=== PATIENT | female | born 1960 | race African-American/Black ===

== ENCOUNTER 2025-08-27 14:33 | Emergency (ER) | payer MEDICAID ==
[~2025-08-27] VITALS: Ht 160 cm; Wt 82.0 kg
[2025-08-27 14:38] VITALS: BP 152/75; PULSE 70; RESP 18; TEMP 97.9; O2SAT 100
[2025-08-27] MEDS: ACETAMINOPHEN 500MG TABLET PO ONE (17:15)
[2025-08-27] MEDS: KETOROLAC 30MG/ML VIAL IM ONE (17:15)
== END 2025-08-27 18:25 | disposition home or self-care (01) ==
LOC: ER 14:33
DX: M79.605 Pain in left leg (principal); I10 Essential (primary) hypertension
CPT/HCPCS: 99283; Z7610; J1885